=== PATIENT | male | born 1970 | race Caucasian/White ===

== ENCOUNTER 2017-07-22 12:45 | Outpatient (CLI) | payer OTHER | END 2017-07-22 12:46 | disposition home or self-care (01) | LOC: BICCT 12:45 | PROVIDERS: ATTEND Urology | DX: N20.0 Calculus of kidney (principal) | CPT/HCPCS: 74176 ==

== ENCOUNTER 2017-10-21 09:11 | Day surgery (SDC) | payer OTHER ==
[2017-10-21] MEDS ORDERED: Sodium Chloride 0.9% 100 ML ONE (10:01)
[2017-10-21] MEDS ORDERED: CEFAZOLIN 1 GM VIAL ONE (10:01)
[2017-10-21] MEDS ORDERED: Fentanyl 100 MCG/2 ML VIAL ONE (10:48)
[2017-10-21] MEDS ORDERED: Furosemide 20 MG/2 ML VIAL ONE (11:11)
--- NOTE | 2017-10-21 11:37 | RAD ---
ABDOMEN ONE VIEW: History: Pre op. Renal stones. FINDINGS: Bowel gas pattern is nonspecific. Projecting over the superior pole of the left renal shadow is an ir regular shaped 0.8 cm calcification. Phleboliths overlie the pelvis. IMPRESSION: Left renal calculus. POS: OMAR
[2017-10-21] MEDS ORDERED: PROPOFOL 200 MG/20 ML VIAL ONE (13:41)
[2017-10-21] MEDS ORDERED: Ondansetron HCl/PF 4 MG/2 ML Vial ONE (13:41)
[2017-10-21] MEDS ORDERED: diphenhydrAMINE 50 MG/ML VIAL ONE (13:41)
[2017-10-21] MEDS ORDERED: Dexamethasone 20 MG/5 ML VIAL ONE (13:41)
[2017-10-21] MEDS ORDERED: Lidocaine 1% PF 5 ML VIAL ONE (13:41)
[2017-10-21] MEDS ORDERED: Metoclopramide HCl 10 MG/2 ML VIAL ONE (13:41)
[2017-10-21] MEDS ORDERED: ePHEDrine/0.9% NaCl/PF SYRINGE 50 mg/10 ml ONE (13:41)
--- NOTE | 2017-10-21 15:40 | OP ---
DATE OF PROCEDURE: 10/21/2017. PREOPERATIVE DIAGNOSIS: Left renal stone. POSTOPERATIVE DIAGNOSIS: Left renal stone. PROCEDURE PERFORMED: Extracorporeal shock wave lithotripsy. SURGEON: Padmini Wilkins ANESTHESIA: General with laryngeal mask airway. FINDINGS: Adequate fragmentation of an 8 mm to 1 cm stone in the upper pole. COMPLICATIONS: None. DRAINS: No drains remaining. ESTIMATED BLOOD LOSS: None. SPECIMENS: None. INDICATIONS: The patient is a 47-year-old male who was seen in the office for stones and noted to have two adjacent 4 mm stones that together appeared to be an 8 mm (and also larger on plain KUB); we set him up for definitive therapy. DESCRIPTION OF PROCEDURE: The patient was brought into the room by Anesthesia, laid on the table in supine position. After receiving general anesthetic, he was positioned such that the lithotripter could identify the stone in multiple planes and then a total of 2500 shocks at a maximum power level of 4/6 at a maximum rate of 70 per minute were then delivered. Good fragmentation was noted. The patient tolerated the procedure well and then was awakened and transferred to PACU in stable condition. BAILEY
== END 2017-10-21 14:46 | disposition home or self-care (01) ==
LOC: SDC 09:11
PROVIDERS: ATTEND Urology
PROC: 0TF4XZZ Fragmentation in Left Kidney Pelvis, External Approach (ICD-10-PCS; principal; 2017-10-21)
DX: N20.0 Calculus of kidney (principal); R35.0 Frequency of micturition; R35.1 Nocturia; Z79.899 Other long term (current) drug therapy
CPT/HCPCS: 74018; G0103; J0690; J1100; J1200; J1940; J2001; J2405; J2704; J2765; J3010; J7050

== ENCOUNTER 2017-11-20 07:08 | Outpatient (CLI) | payer OTHER ==
--- NOTE | 2017-11-20 07:46 | RAD ---
TWO VIEWS FROM A KUB: INDICATION: Renal stones. COMPARISON: Prior exam dated 10/21/17. FINDINGS: Previously seen left renal calculus is no longer present. Small phleboliths within the lower pelvis are stable. No suspicious calcifications are seen along the respective course of the renal collectin g systems. Bowel gas pattern is unobstructed. No acute osseous abnormality is evident. IMPRESSION: Interval removal of the previously seen left renal calculus. POS: OMAR
== END 2017-11-20 07:09 | disposition home or self-care (01) ==
LOC: RAD 07:08
PROVIDERS: ATTEND Urology
DX: N20.0 Calculus of kidney (principal)
CPT/HCPCS: 74018